=== PATIENT | male | born 1955 | race Caucasian/White ===

== ENCOUNTER 2019-06-23 05:53 | Emergency (ER) | payer OTHER ==
[2019-06-23 06:16] VITALS: BMI 26.6
[2019-06-23 07:00] LABS: HEMATOCRIT 37.5 % (35.4-49); HEMOGLOBIN 13.2 GM/dL (11.7-16.9); MCHC 35.2 g/dl (32.0-35.9); MEAN PLT VOLUME 8.9 fl (7.5-11.1); PLATELET COUNT 267 K/MM3 (134-434); RBC 4.12 M/mm3 (4.00-5.60); RDW 13.6 % (11.9-15.9); WHITE BLOOD COUNT 9.1 K/mm3 (4.0-10.0)
[2019-06-23 07:34] LABS: ALBUMIN 3.5 g/dl (3.4-5.0); ALK PHOS 59 U/L (45-117); ANION GAP 5 MMOL/L (8-16); BILIRUBIN,TOTAL 0.3 mg/dL (0.2-1); BLOOD UREA NITROGEN 23.2 mg/dL (7-18); CHLORIDE 109 mmol/L (98-107); CO2 28 mmol/L (21-32); CREATININE 1.3 mg/dL (0.55-1.3); GLUCOSE,RANDOM 108 mg/dL (74-106); POTASSIUM 4.5 mmol/L (3.5-5.1); SGOT/AST 15 U/L (15-37); SGPT/ALT 22 U/L (13-61); SODIUM 142 mmol/L (136-145); TOT PROT 6.4 g/dl (6.4-8.2)
[2019-06-23] MEDS ORDERED: MECLIZINE HCL 25 MG TABLET (FP) PO ONE (08:10)
[2019-06-23] MEDS ORDERED: SODIUM CHLORIDE 1,000 ML IV STA (08:10)
[2019-06-23] MEDS ORDERED: MECLIZINE HCL 12.5 MG TABLET ONE (08:20)
--- NOTE | 2019-06-23 09:17 | PDOC ---
Documentation entered by Meg Hylton SCRIBE, acting as scribe for Jm Garcias MD. Jm Garcias MD: This documentation has been prepared by the Warner segura Sammi, SCRIBE, under my direction and personally reviewed by me in its entirety. I confirm that the documentation accurately reflects all work, treatment, procedures, and medical decision making performed by me. History of Present Illness - General Chief Complaint: Lightheaded Stated Complaint: DIZZINESS Time Seen by Provider: 06/23/19 07:51 - History of Present Illness Initial Comments: 06/23/19 08:22 The patient is a 64 year old male, with PMH of chronic sinusitis, lumbar herniated discs, HTN, who presents for evaluation of sudden onset of dizziness, specifically when looking to the left, with associated trouble focusing, nausea , and weird feeling in his face. Denies chest pain and shortness of breath. Denies fever, chills, vomiting, diarrhea and constipation. Denies dysuria, frequency, urgency and hematuria. PCP: Vandana Jade Past History - Past Medical History Allergies/Adverse Reactions: Allergies Allergy/AdvReac Type Severity Reaction Status Date / Time No Known Allergies Allergy Verified 06/23/19 06:11 Home Medications: Ambulatory Orders Atorvastatin Ca [Lipitor] 40 mg PO HS 06/23/19 Telmisartan 80 mg PO DAILY 06/23/19 COPD: Yes HTN: Yes Hypercholesterolemia: Yes - Psycho Social/Smoking Cessation Hx Smoking History: Never smoked Have you smoked in the past 12 months: No Information on smoking cessation initiated: No Hx Alcohol Use: No Drug/Substance Use Hx: No Review of Systems - Review of Systems Comments:: 06/23/19 08:23 CONSTITUTIONAL: No fever, no chills, no fatigue EYES: No visual changes ENT: No ear pain, no sore throat CARDIOVASCULAR: No chest pain, no palpitations RESPIRATORY: No cough, no SOB GI: +nausea. No abdominal pain, no vomiting, no constipation, no diarrhea GENITOURINARY: No dysuria, no frequency, no hematuria MUSKULOSKELETAL: No backpain, no joint pain, no myalgias SKIN: No rash NEURO: +dizziness. No headache. *Physical Exam - Vital Signs Last Vital Signs Temp Pulse Resp BP Pulse Ox 97.6 F 64 20 149/89 97 06/23/19 06:12 06/23/19 06:12 06/23/19 06:12 06/23/19 06:12 06/23/19 06:12 - Physical Exam 06/23/19 08:22 CONSTITUTIONAL: Well-appearing; well-nourished; in no apparent distress HEAD: Normocephalic; atraumatic EYES: +Bilateral end point nystagmus, PERRL; ENMT: External appears normal; normal oropharynx NECK: Supple; non-tender; no cervical lymphadenopathy CARD: Normal S1, S2; no murmurs, rubs, or gallops RESP: Normal chest excursion with respiration; breath sounds clear and equal bilaterally; no wheezes, rhonchi, or rales ABD: Soft, non-distended; non-tender; no palpable organomegaly, no palpable hernias EXT: Normal ROM in all four extremities; non-tender to palpation; distal pulses intact SKIN: Warm, dry, no rash NEURO: Normal speech, cranial nerves II-XII intact, negative pronator drift, 5/ 5 motor x4, normal sensation to light touch in all 4 extremities, normal cerebellar exam (ftn; rapid alt movts; htsh; no dysmetria), normal reflexes and tone; ED Treatment Course - LABORATORY CBC & Chemistry Diagram: 06/23/19 06:30 06/23/19 06:30 - ADDITIONAL ORDERS Additional order review: Laboratory Results 06/23/19 06:30 Sodium 142 Potassium 4.5 Chloride 109 H Carbon Dioxide 28 Anion Gap 5 L BUN 23.2 H Creatinine 1.3 Est GFR (CKD-EPI)AfAm 66.36 Est GFR (CKD-EPI)NonAf 57.26 Random Glucose 108 H Calcium 9.0 Total Bilirubin 0.3 AST 15 ALT 22 Alkaline Phosphatase 59 Creatine Kinase 110 Troponin I < 0.02 Total Protein 6.4 Albumin 3.5 06/23/19 06:30 RBC 4.12 MCV 91.0 MCHC 35.2 RDW 13.6 MPV 8.9 - Medications Given in the ED: ED Medications Discontinued Medications Generic Name Dose Route Start Last Admin Trade Name Freq PRN Reason Stop Dose Admin Sodium Chloride 1,000 mls @ 1,000 mls/hr 06/23/19 08:10 06/23/19 08:26 Normal Saline - IV 06/23/19 09:09 1,000 mls/hr ASDIR STA Administration Meclizine HCl 25 mg 06/23/19 08:10 06/23/19 08:26 Antivert - PO 06/23/19 08:11 25 mg ONCE ONE Administration Medical Decision Making - Medical Decision Making 06/23/19 09:16 Patient is a 64-year-old male with history of hypertension, chronic sinusitis presents with signs and symptoms of acute benign positional vertigo. I do not suspect central posterior fossa insufficiency. Will administer fluids and meclizine. Will obtain CT of head to rule out intracerebral hemorrhage. Likely discharge. 06/23/19 10:54 Patient reassessed. Patient is resting comfortably. Repeat neurological evaluation reveals no focal deficits. Patient is able to ambulate without difficulty. His gait is stable without evidence of ataxia. Posterior circulation insufficiency is highly unlikely at this time.Will discharge with meclizine with outpatient follow-up. Discharge - Discharge Information Problems reviewed: Yes Clinical Impression/Diagnosis: Vertigo Condition: Stable Disposition: HOME - Follow up/Referral Referrals: Davidson Jade MD [Primary Care Provider] - - Patient Discharge Instructions Patient Printed Discharge Instructions: DI for Vertigo - Post Discharge Activity
[2019-06-23 11:08] VITALS: BP 138/63; PULSE 68; TEMP 98.6
--- NOTE | 2019-06-23 14:53 | EKG ---
Test Reason : Blood Pressure : / mmHG Vent. Rate : 063 BPM Atrial Rate : 063 BPM P-R Int : 180 ms QRS Dur : 080 ms QT Int : 418 ms P-R-T Axes : 049 050 044 degrees QTc Int : 427 ms NORMAL SINUS RHYTHM NORMAL ECG NO PREVIOUS ECGS AVAILABLE Confirmed by SHAHZAD WAGONER MD ([id number]) on 06/23/2019 2:53:36 PM Referred By: Confirmed By:SHAHZAD WAGONER MD
== END 2019-06-23 11:02 | disposition home or self-care (01) ==
LOC: JER 05:53
PROC: 3E0337Z Introduction of Electrolytic and Water Balance Substance into Peripheral Vein, Percutaneous Approach (ICD-10-PCS; principal; 2019-06-23)
DX: R42 Dizziness and giddiness (principal); I10 Essential (primary) hypertension; J32.8 Other chronic sinusitis
CPT/HCPCS: 36415; 70450-TC; 71045-TC-FY; 80053; 82550; 84484; 85027; 93005; 93010; 96360; 99284-25; J7030

== ENCOUNTER 2019-07-27 09:03 | Inpatient (IN) | payer OTHER ==
--- NOTE | 2019-07-27 09:09 | PDOC ---
*Physical Exam - Vital Signs Last Vital Signs Temp Pulse Resp BP Pulse Ox 98 F 76 19 166/66 96 07/27/19 09:05 07/27/19 09:05 07/27/19 09:05 07/27/19 09:05 07/27/19 09:05 <Anabela Luna - Last Filed: 07/27/19 13:06> - Vital Signs Last Vital Signs Temp Pulse Resp BP Pulse Ox 98.0 F 72 16 136/82 98 07/27/19 12:52 07/27/19 12:52 07/27/19 12:52 07/27/19 12:52 07/27/19 12:52 <Layla Claudio - Last Filed: 07/27/19 16:12> Heart Score/ECG Review - ECG Impressions Comment:: 07/27/19 11:22 HR 67, no MADHU/STD/TWI, normal intervals, no deviations <Anabela Luna - Last Filed: 07/27/19 13:06> ED Treatment Course - LABORATORY CBC & Chemistry Diagram: 07/27/19 10:18 07/27/19 10:18 <Anabela Luna - Last Filed: 07/27/19 13:06> - LABORATORY CBC & Chemistry Diagram: 07/27/19 10:18 07/27/19 10:18 - RADIOLOGY Radiology Studies Ordered: Category Date Time Status CHEST X-RAY PORTABLE* [RAD] Stat Radiology 07/27/19 10:17 Completed - Medications Given in the ED: ED Medications Discontinued Medications Generic Name Dose Route Start Last Admin Trade Name Freq PRN Reason Stop Dose Admin Sodium Chloride 1,000 ml 07/27/19 10:52 07/27/19 11:13 Normal Saline - IV 07/27/19 10:53 1,000 ml ONCE ONE Administration <Layla Claudio - Last Filed: 07/27/19 16:12> Medical Decision Making - Medical Decision Making 07/27/19 09:08 Patient seen as pre-attending with Dr. Trent (PGY-1) and Dr. Claudio (Attending) 64 y/o male with a PMHx of HTN, chronic sinusitis, vertigo, lumbar herniated discs here with persistent tinnitus, a sense of lightheadedness, shock like pains in the back of his head when he sleep and floating like sensation. Symptoms are constant and worse at night. Notes he was evaluated for vertigo at which time he was given Meclizine. Followed up ENT with R sided high frequency hearing loss. Evaluated by PMD who stated he had inner ear disease. VS unremarkable PE significant for B/L horizontal nystagmus. As per EMR, patient evaluated in our ED 06/2019 for vertigo, head CT negative for ischemia including posterior fossa insufficiency. Will evaluate patient for r/o ACS, electrolyte derangement, dehydration, low clinical suspicion for CVA given recent negative Head CT; patient requires MRI for complete evaluation of symptoms. 07/27/19 11:23 Labs unremarkable EKG non-ischemic Will page hospitalist for admission. <Anabela Luna - Last Filed: 07/27/19 13:06> Discharge - Discharge Information Problems reviewed: Yes <Anabela Luna - Last Filed: 07/27/19 13:06> - Discharge Information Problems reviewed: Yes - Admission Yes <Layla Claudio - Last Filed: 07/27/19 16:12> - Discharge Information Clinical Impression/Diagnosis: Lightheaded Tinnitus Qualifiers: Laterality: bilateral Qualified Code(s): H93.13 - Tinnitus, bilateral Condition: Stable
--- NOTE | 2019-07-27 09:50 | PDOC ---
History of Present Illness - General History Source: Patient Exam Limitations: No Limitations - History of Present Illness Initial Comments: 07/27/19 09:49 Emil Lima is a 64M with PMH chronic sinusitis, lumbar herniated discs, HTN, HLD, presenting with dizziness. Patient evaluated last month in ED for room-spinning dizziness, given meclizine and IVF and CT head obtained which had no concerning findings, discharged home on meclizine. Since then, has had improvement in room-spinning dizziness but is still complaining of a distinctly different lightheadedness, described as if he is floating. Also having difficulty with watching TV with new vision blurriness, tinnitus and sensitivity to loud noises, and a pulsating sensation in his temples. Denies nausea, vomiting, fever, chills. Denies weakness, numbness, tingling. Able to ambulate without issues. Has seen ENT a few weeks ago, audiogram shows mild high frequency hearing loss, Kahlil maneuvers performed without significant improvement, ENT discharged home. No history of cardiac disease, CVA, OK, AFIB. Daily medications include statin and ARB for HTN. NDKA. Denies alcohol/tobacco/drug use. <Steffen Trent - Last Filed: 07/27/19 12:29> <Layla Claudio - Last Filed: 07/29/19 16:18> - General Chief Complaint: Lightheaded Stated Complaint: VERTIGO Time Seen by Provider: 07/27/19 09:46 NIH Stroke Scale - Initial Evaluation Level of consciousness: Alert Ask patient the month and their age: Answers both correctly Ask patient to open & close eyes; make fist and let go: Obeys both correctly Best gaze (horizontal eye movement): Normal Visual field testing: No visual field loss Facial paresis (Show teeth/raise eyebrows/close eyes tight): Minor paralysis ( flattened nasolabial fold, asymmetry on smiling) Motor Function: Left Arm: Normal Motor Function: Right Arm: Normal (extends arm 90 (or 45) degrees for 10 seconds without drift Motor Function: Left Leg: Normal (extends leg 30 degrees for 5 seconds without drift) Motor Function: Right Leg: Normal (extends leg 30 degrees for 5 seconds without drift) Limb Ataxia: No ataxia Sensory(Use pinprick test arms,legs,trunk,face/side to side): Normal Best language (Describe picture, name items, read sentences): No Aphasia Dysarthria (read several words): Normal articulation Extinction and Inattention: No abnormality - Total Score NIH Stroke Scale Score: 1 <PamelaSteffen sloan - Last Filed: 07/27/19 12:29> Past History - Past Medical History COPD: Yes HTN: Yes Hypercholesterolemia: Yes - Psycho Social/Smoking Cessation Hx Smoking History: Never smoked Have you smoked in the past 12 months: No Hx Alcohol Use: No Drug/Substance Use Hx: No <Steffen Trent - Last Filed: 07/27/19 12:29> <Layla Claudio - Last Filed: 07/29/19 16:18> - Past Medical History Allergies/Adverse Reactions: Allergies Allergy/AdvReac Type Severity Reaction Status Date / Time No Known Allergies Allergy Verified 07/27/19 09:07 Home Medications: Ambulatory Orders Atorvastatin Ca [Lipitor] 40 mg PO HS 06/23/19 Aspirin [ASA -] 81 mg PO DAILY #30 tab.chew 07/28/19 Telmisartan 80 mg PO DAILY 07/28/19 Review of Systems - Review of Systems Able to Perform ROS?: Yes Constitutional: No: Chills, Fever, Weakness HEENTM: Yes: Blurred Vision, Recent change in vision, Tinnitus. No: Hearing Loss, Throat Pain Respiratory: No: Cough, Shortness of Breath, Wheezing Cardiac (ROS): Yes: Lightheadedness. No: Chest Pain, Edema, Irregular Heart Rate, Palpitations, Syncope, Chest Tightness ABD/GI: No: Abdominal Distended, Constipated, Diarrhea, Nausea, Poor Appetite, Poor Fluid Intake, Vomiting : No: Symptoms Reported Musculoskeletal: Yes: Back Pain, Neck Pain. No: Muscle Weakness Integumentary: No: Symptoms Reported Neurological: Yes: Dizziness. No: Headache, Numbness, Paresthesia, Seizure, Tingling, Unsteady Gait, Ataxia Endocrine: No: Symptoms Reported Hematologic/Lymphatic: No: Symptoms Reported All Other Systems: Reviewed and Negative <PamelaThad sloanur - Last Filed: 07/27/19 12:29> *Physical Exam - Vital Signs Last Vital Signs Temp Pulse Resp BP Pulse Ox 98 F 76 19 166/66 96 07/27/19 09:05 07/27/19 09:05 07/27/19 09:05 07/27/19 09:05 07/27/19 09:05 - Physical Exam General Appearance: Yes: Nourished, Appropriately Dressed. No: Apparent Distress HEENT: positive: EOMI (horizontal bidirectional nystagmus), LAUREN, Normal Voice, TMs Normal, Pharynx Normal, Hearing Grossly Normal. negative: Symmetrical ( flattening of R nasolabial fold), Scleral Icterus (R), Scleral Icterus (L), Muffled/Hoarse voice, Pharyngeal Erythema, Tonsillar Exudate, Tonsillar Erythema Neck: positive: Trachea midline, Normal Thyroid, Supple. negative: Tender, Rigid, Lymphadenopathy (R), Lymphadenopathy (L), Tender lateral, Tender midline Respiratory/Chest: positive: Lungs Clear, Normal Breath Sounds. negative: Chest Tender, Respiratory Distress, Accessory Muscle Use, Crackles, Rales, Rhonchi Cardiovascular: positive: Regular Rhythm, Regular Rate. negative: Murmur Gastrointestinal/Abdominal: positive: Normal Bowel Sounds, Flat, Soft. negative : Tender, Pulsatile Mass, Guarding, Rebound Musculoskeletal: positive: Normal Inspection. negative: CVA Tenderness Extremity: positive: Normal Capillary Refill, Normal Inspection, Normal Range of Motion, Pelvis Stable. negative: Tender, Pedal Edema, Swelling Integumentary: positive: Normal Color, Dry, Warm Neurologic: positive: Fully Oriented, Alert, Normal Mood/Affect, Normal Response , Motor Strength 5/5, Facial Droop, Finger to Nose (normal), Other (Gait normal. HiNTS: no saccades, nystagmus present, no skew). negative: client partner II-XII NML intact (R-sided facial droop), Numbness, Sensory Deficit <Steffen Trent - Last Filed: 07/27/19 12:29> - Vital Signs Last Vital Signs Temp Pulse Resp BP Pulse Ox 98.2 F 73 16 121/63 96 07/28/19 13:54 07/28/19 13:54 07/28/19 13:54 07/28/19 13:54 07/28/19 09:00 <Layla Claudio - Last Filed: 07/29/19 16:18> ED Treatment Course - LABORATORY CBC & Chemistry Diagram: 07/27/19 10:18 07/27/19 10:18 <Steffen Trent - Last Filed: 07/27/19 12:29> - LABORATORY CBC & Chemistry Diagram: 07/28/19 05:35 07/28/19 05:35 - RADIOLOGY Radiology Studies Ordered: Category Date Time Status CHEST X-RAY PORTABLE* [RAD] Stat Radiology 07/27/19 10:17 Completed - Medications Given in the ED: ED Medications Discontinued Medications Generic Name Dose Route Start Last Admin Trade Name Freq PRN Reason Stop Dose Admin Aspirin 81 mg 07/28/19 14:00 07/28/19 14:20 Asa - PO 81 mg DAILY THELMA Administration Atorvastatin Calcium 40 mg 07/27/19 22:00 07/27/19 22:18 Lipitor - PO 40 mg HS THELMA Administration Enoxaparin Sodium 40 mg 07/28/19 10:00 07/28/19 09:12 Lovenox - SQ 40 mg DAILY THELMA Administration Sodium Chloride 1,000 ml 07/27/19 10:52 07/27/19 11:13 Normal Saline - IV 07/27/19 10:53 1,000 ml ONCE ONE Administration Valsartan 320 mg 07/28/19 11:00 07/28/19 12:04 Diovan - PO 320 mg DAILY THELMA Administration <Layla Claudio - Last Filed: 07/29/19 16:18> Medical Decision Making - Medical Decision Making 07/27/19 11:06 Patient presents with lightheadedness, tinnitus, and nystagmus that is worse from his prior ED visit last month for vertigo. On exam has bidirectional nystagmus and mild R-sided facial droop, patient unaware how long this was for as he did not notice, last known normal unknown, family unaware either, well out of range of tPA. No other acute deficits, no Code Hutton indicated at this time. Presentation immediately concerning for posterior CVA. Given tinnitus and lightheadedness may be concerning for Meniere's or labyrinthitis. Evaluating via: - CBC for eval infection - CMP for eval lytes - CP for eval cardiac cause of dizziness - CT head for facial droop and worsening dizziness Giving 1L NS for dizziness. Patient will need admission for further MRI and neurology evaluation. 07/27/19 12:[address] Mcgrath with admitting team, fabio for tele admit under Dr. Gómez for eval CVA. 07/27/19 12:28 ECG shows NSR with HR 67, QRS 80, QTc 431, no ischemic changes or TWI. CXR unremarkable. CT no evidence of infarct or ICH. <Steffen Trent - Last Filed: 07/27/19 12:29> Discharge - Discharge Information Problems reviewed: Yes - Admission Yes <Steffen Trent - Last Filed: 07/27/19 12:29> - Discharge Information Problems reviewed: Yes <Layla Claudio - Last Filed: 07/29/19 16:18> - Discharge Information Clinical Impression/Diagnosis: Lightheaded Tinnitus Qualifiers: Laterality: bilateral Qualified Code(s): H93.13 - Tinnitus, bilateral Condition: Stable
--- NOTE | 2019-07-27 10:06 | PDOC ---
Attending Attestation - Resident Resident Name: Anabela Luna - ED Attending Attestation I have performed the following: I have examined & evaluated the patient, The case was reviewed & discussed with the resident, I agree w/resident's findings & plan - HPI HPI: 07/27/19 09:51 Emil Lima is a 64M with PMH chronic sinusitis, lumbar herniated discs, HTN, presenting with constant dizziness/lightheadedness, which is worse at nighttime and at rest, a/w vibratory sensations in his temples.. sx are not improving. ringing in b/l ears, difficulty focusing and visual disturbance on right with watching tv last night. he admits to feeling vibrations along his temples bilaterally, migratory. occasionally gets generalized headaches which he has difficulty describing.. Patient evaluated last month in ED on 06/23/19 for dizziness/vertigo, given meclizine and IVF and CT head obtained which had no concerning findings, chronic sinusitis noted, discharged home on meclizine which helped the vertigo, which has since resolved.. has seen ENT x 2 in the past 1 month, where audiogram with right sided high freq hearing loss. no headache, fever no trauma. no focal paresthesia or weakness. no gait instability no difficulty with speech. PCP: Vandana Jade 07/27/19 10:13 07/27/19 10:55 - Physicial Exam PE: 07/27/19 09:51 Agree with the resident's HPI and PE as documented in the electronic medical record. NAD, well appearing, Alert, oriented to person time and place. NCAT, EOMI, PERRL , nl conjunctiva, anicteric, b/l fatiguable nystagmus; Airway patent, normal phonation. Uvula midline. no tonsillar hypertrophy. No sinus tenderness, TM clear. neck supple. No carotid bruit, lungs clear, RRR, abdomen soft nontender. no rebound, guarding. Back nontender. ALICIA x4. No peripheral edema. normal color for ethnicity, WWP. +minor right lower facial droop, minor decrease in nasolabial folds; able to raise bilateral eyebrows and normal furrowing b/l. 5/5 masseter muscle strength , V1-3 grossly intact to touch. tongue midline. hearing intact b/l. 5/5 shoulder shrug. Strength prox and distally 5/5 throughout. Sensation grossly intact to light touch. ALICIA x4. No cerebellar signs, no dysmetria, bilateral finger to nose and heel to sims equal and symmetric. Speech clear. no pronator drift. 07/27/19 10:53 07/27/19 10:59 - Medical Decision Making 07/27/19 09:52 Vital Signs Temp Pulse Resp BP Pulse Ox 98 F 76 19 166/66 96 07/27/19 09:05 07/27/19 09:05 07/27/19 09:05 07/27/19 09:05 07/27/19 09:05 ddx. vertigo/dizziness: peripheral vertigo, BPPV, labrynthitis, central vertigo/ stroke, posterior circ stroke, trauma, infection, cerumen impaction, ACS, arrhythmia VS reviewed, mildly hypertensive, afebrile, no tachy. orthostats unremarkable with positional changes. no trauma no s/s infection. no meningeal signs no focal neuro deficits, speech clear no suggestion of central etiology. has seen ENT x 2 in the past 1 month, where audiogram with right sided high freq hearing loss. no headache, fever no trauma. no focal paresthesias no gait instability no difficulty with speech. noted to have right sided lower facial droop, which pt nor family has noted. unclear last normal for patient, as symptoms have been present x at least 1 month. not tpa candidate, nor code contreras, as there is not clear last normal and patient has not noticed his very mild right lower facial drop CT head repeat, unremarkable warrants MRI for insidious process. admit to hospitalist service, medical management, tele and MRI/echo 07/27/19 10:14 Heart Score/ECG Review #1 ECG reviewed & interpreted by me at: 10:35 General ECG Interpretation: Sinus Rhythm, Normal Rate, Normal Intervals 07/27/19 10:59 EKG normal sinus rhythm 67 bpm, no interval abnormalities, narrow QRS, ST and T wave segments and morphology normal.
[2019-07-27 10:41] LABS: BASO % 0.7 % (0-2.0); EOS % 0.9 % (0-4.5); HEMATOCRIT 40.9 % (35.4-49); HEMOGLOBIN 13.9 GM/dL (11.7-16.9); MCH 31.7 pg (25.7-33.7); MEAN CELL VOLUME 93.2 fl (80-96); MEAN PLT VOLUME 8.9 fl (7.5-11.1); NEUT % 72.4 % (42.8-82.8); PLATELET COUNT 278 K/MM3 (134-434); RBC 4.39 M/mm3 (4.00-5.60); RDW 13.6 % (11.9-15.9); WHITE BLOOD COUNT 8.7 K/mm3 (4.0-10.0)
[2019-07-27] MEDS ORDERED: SODIUM CHLORIDE 0.9% 500 ML INFUS.BAG IV ONE (10:52)
[2019-07-27 11:09] LABS: ALBUMIN 4.2 g/dl (3.4-5.0); ALK PHOS 61 U/L (45-117); ANION GAP 6 MMOL/L (8-16); BILIRUBIN,TOTAL 0.5 mg/dL (0.2-1); CALCIUM 9.3 mg/dL (8.5-10.1); CHLORIDE 107 mmol/L (98-107); CO2 27 mmol/L (21-32); CREATININE 1.3 mg/dL (0.55-1.3); GLUCOSE,RANDOM 117 mg/dL (74-106); POTASSIUM 4.4 mmol/L (3.5-5.1); SGOT/AST 20 U/L (15-37); SGPT/ALT 28 U/L (13-61); SODIUM 140 mmol/L (136-145); TOT PROT 7.1 g/dl (6.4-8.2)
--- NOTE | 2019-07-27 16:17 | PN ---
Teaching Attending Note Name of Resident: Jana Villegas ATTENDING PHYSICIAN STATEMENT I saw and evaluated the patient. I reviewed the resident's note and discussed the case with the resident. I agree with the resident's findings and plan as documented. SUBJECTIVE: Patient interviewed and examined at bedside, endorses acute on chronic dizziness and "floating-like sensation" for the past few days, see's ENT outpatient whom has given him abx/steroids in the past for similar presentation which helped, now feels slightly worse symptoms than prior. VS otherwise stable, awaiting MRI. OBJECTIVE: GA comfortable, AAox3, speaking in full sentences, NAD HEENT NC/AT, neck supple, faint R nasolabial fold asymmetry compared to L, no dysarthria, EOMI, LAUREN, no nystagmus Chest CTAB, no crackles or wheezing CVS s1, S2+, RRR, no m/r/g, no audible carotid bruits Abd Soft, NT, ND, BS+ Ext No LE edema, 5/5 strength UE and LE Neuro Scott hallpike negative, CN 2-12 grossly intact, finger to nose intact, good sensation and equal in face UE and LE b/l. Vital Signs - 24 hr 07/27/19 07/27/19 07/27/19 09:05 10:44 12:52 Temperature 98 F 98.0 F Pulse Rate 76 Pulse Rate [ 72 Left Apical] Pulse Rate [ 80 Right side Sitting] Pulse Rate [ 84 Right side Standing] Pulse Rate [ 68 Right side Supine] Respiratory 19 16 Rate Blood Pressure 166/66 Blood Pressure 136/82 [Left Arm] Blood Pressure 136/95 [Right side Sitting] Blood Pressure 141/102 H [Right side Standing] Blood Pressure 156/90 [Right side Supine] O2 Sat by Pulse 96 98 Oximetry (%) Laboratory Results - last 24 hr 07/27/19 07/27/19 10:18 10:18 WBC 8.7 RBC 4.39 Hgb 13.9 Hct 40.9 MCV 93.2 MCH 31.7 MCHC 34.0 RDW 13.6 Plt Count 278 MPV 8.9 Absolute Neuts (auto) 6.3 Neutrophils % 72.4 Lymphocytes % 20.0 Monocytes % 6.0 Eosinophils % 0.9 Basophils % 0.7 Nucleated RBC % 0 Sodium 140 Potassium 4.4 Chloride 107 Carbon Dioxide 27 Anion Gap 6 L BUN 19.0 H Creatinine 1.3 Est GFR (CKD-EPI)AfAm 66.36 Est GFR (CKD-EPI)NonAf 57.26 Random Glucose 117 H Calcium 9.3 Total Bilirubin 0.5 AST 20 ALT 28 Alkaline Phosphatase 61 Creatine Kinase 206 Creatine Kinase Index 0.9 CK-MB (CK-2) 2.0 Troponin I < 0.02 Total Protein 7.1 Albumin 4.2 Home Medications Medication Instructions Recorded Atorvastatin Ca [Lipitor] 40 mg PO HS 06/23/19 Meclizine HCl [Antivert -] 25 mg PO TID #21 tablet 06/23/19 Telmisartan 80 mg PO DAILY 06/23/19 Current Medications Generic Name Dose Route Start Last Admin Trade Name Freq PRN Reason Stop Dose Admin Enoxaparin Sodium 40 mg 07/28/19 10:00 Lovenox - SQ DAILY THELMA ASSESSMENT AND PLAN: 64 M h/o HTN, chronic vertigo, HLD presents with acute on chronic dizziness and feeling of lightheadedness. Patient admitted to r/o posterior circulation CVA v.s. Meniere's/labyrinthitis exacerbation. Dizziness and lightheadedness doubt CVA, no focal neuro deficits, endorses dizziness/lightheadedness is chronic (for years) but recently worsened 2/2 ?URI Obtain MRI to r/o CVA, neurochecks, statin, permissive HTN pending imaging ENT consult Neuro consult HTN hold BP meds for now HLD resume statin DVT ppx: Lovenox SC Tele monitoring
--- NOTE | 2019-07-27 17:50 | HP ---
CHIEF COMPLAINT: dizziness PCP:Dr. Jade HISTORY OF PRESENT ILLNESS: PAtient is a 64 year old male with past medical history of chronic sinusitis, lumbar herniated discs, HTN and HLD, presented to the ED due to persistent dizziness/lightheadedness. Patient was seen a month ago at the ED where Head CT was negative of any acute pathology and patient was sent home on Meclizine for vertigo. Since then, patient continued to have symptoms of lightheadedness, accompanied by tinnitus, of which he has seen ENT in the past of which he was told it was normal, and had an audiometry done recently and he was diagnosed with decreased left hearing. In the last few days, patient noted some blurry vision, especially when watching TV, and feels "some electricity in my head". He denies any recent illness. Denies fever, chills, headache, nausea, vomiting, chest pain, SOB, abdominal pain, diarrhea, urinary symptoms. Denies weakness, numbness, or tingling. At the ED, patient was noted to have left sided facial droop, of which patient reported "has always been like that." ER course was notable for: (1)Head CT - no acute intracranial pathology (2) (3) Recent Travel:denies PAST MEDICAL HISTORY: lumbar herniated discs HTN HLD PAST SURGICAL HISTORY: none Social History: Smoking:denies Alcohol:denies Drugs: denies Allergies No Known Allergies Allergy (Verified 07/27/19 09:07) HOME MEDICATIONS: Home Medications Medication Instructions Recorded Atorvastatin Ca [Lipitor] 40 mg PO HS 06/23/19 Meclizine HCl [Antivert -] 25 mg PO TID #21 tablet 06/23/19 Telmisartan 80 mg PO DAILY 06/23/19 REVIEW OF SYSTEMS CONSTITUTIONAL: Absent: fever, chills, diaphoresis, generalized weakness, malaise, loss of appetite, weight change HEENT: Absent: rhinorrhea, nasal congestion, throat pain, throat swelling, difficulty swallowing, mouth swelling, ear pain, eye pain, visual changes CARDIOVASCULAR: Absent: chest pain, syncope, palpitations, irregular heart rate, lightheadedness , peripheral edema RESPIRATORY: Absent: cough, shortness of breath, dyspnea with exertion, orthopnea, wheezing, stridor, hemoptysis GASTROINTESTINAL: Absent: abdominal pain, abdominal distension, nausea, vomiting, diarrhea, constipation, melena, hematochezia GENITOURINARY: Absent: dysuria, frequency, urgency, hesitancy, hematuria, flank pain, genital pain MUSCULOSKELETAL: Absent: myalgia, arthralgia, joint swelling, back pain, neck pain SKIN: Absent: rash, itching, pallor HEMATOLOGIC/IMMUNOLOGIC: Absent: easy bleeding, easy bruising, lymphadenopathy, frequent infections ENDOCRINE: Absent: unexplained weight gain, unexplained weight loss, heat intolerance, cold intolerance NEUROLOGIC: dizziness Absent: headache, focal weakness or paresthesias, unsteady gait, seizure, mental status changes, bladder or bowel incontinence PSYCHIATRIC: Absent: anxiety, depression, suicidal or homicidal ideation, hallucinations. PHYSICAL EXAMINATION Vital Signs - 24 hr 07/27/19 07/27/19 07/27/19 09:05 10:44 12:52 Temperature 98 F 98.0 F Pulse Rate 76 Pulse Rate [ 72 Left Apical] Pulse Rate [ 80 Right side Sitting] Pulse Rate [ 84 Right side Standing] Pulse Rate [ 68 Right side Supine] Respiratory 19 16 Rate Blood Pressure 166/66 Blood Pressure 136/82 [Left Arm] Blood Pressure 136/95 [Right side Sitting] Blood Pressure 141/102 H [Right side Standing] Blood Pressure 156/90 [Right side Supine] O2 Sat by Pulse 96 98 Oximetry (%) GENERAL: Awake, alert, and fully oriented, in no acute distress. HEAD: Normal with no signs of trauma. EYES: PERRLA, EOMI, sclera anicteric, conjunctiva clear. EARS, NOSE, THROAT: Moist mucous membranes. NECK: Normal range of motion, supple LUNGS: Breath sounds equal, clear to auscultation bilaterally. HEART: Regular rate and rhythm, normal S1 and S2 without murmur, rub or gallop. ABDOMEN: Soft, nontender, not distended, normoactive bowel sounds LOWER EXTREMITIES: 2+ pulses, warm, well-perfused. No peripheral edema. NEUROLOGICAL: Cranial nerves II-XII intact. Normal speech. Normal gait. Motor strength 5/5, sensation intact on all extremities. PSYCHIATRIC: Cooperative. Good eye contact. Appropriate mood and affect. SKIN: Warm, dry, normal turgor. Laboratory Results - last 24 hr 07/27/19 07/27/19 10:18 10:18 WBC 8.7 RBC 4.39 Hgb 13.9 Hct 40.9 MCV 93.2 MCH 31.7 MCHC 34.0 RDW 13.6 Plt Count 278 MPV 8.9 Absolute Neuts (auto) 6.3 Neutrophils % 72.4 Lymphocytes % 20.0 Monocytes % 6.0 Eosinophils % 0.9 Basophils % 0.7 Nucleated RBC % 0 Sodium 140 Potassium 4.4 Chloride 107 Carbon Dioxide 27 Anion Gap 6 L BUN 19.0 H Creatinine 1.3 Est GFR (CKD-EPI)AfAm 66.36 Est GFR (CKD-EPI)NonAf 57.26 Random Glucose 117 H Calcium 9.3 Total Bilirubin 0.5 AST 20 ALT 28 Alkaline Phosphatase 61 Creatine Kinase 206 Creatine Kinase Index 0.9 CK-MB (CK-2) 2.0 Troponin I < 0.02 Total Protein 7.1 Albumin 4.2 ASSESSMENT/PLAN: PAtient is a 64 year old male with past medical history of chronic sinusitis, lumbar herniated discs, HTN and HLD, presented to the ED due to persistent dizziness/lightheadedness. #Dizziness -unclear etiology at this time, may be 2/2 labyrinthitis, Meniere's disease , will r/o CVA -will order brain MRI to r/o CVA -continue statin, hold telmisartan for permissive HTN pending MRI -neurochecks -HOB elevated -Neurology (dr. Dunbar) consulted. -would likely need ENT consult on discharge #HTN -Hold Telmisartan 80mg daily to allow permissive htn #HLD -Continue Lipitor 40mg PO HS #FEN -Not on any standing fluids -Electrolytes wnl, routine bmp monitoring -Sodium restricted/low fat diet #Prophylaxis -Lovenox 40mg sq daily #Disposition -full code -admit to tele Visit type - Emergency Visit Emergency Visit: Yes ED Registration Date: 07/27/19 Care time: The patient presented to the Emergency Department on the above date and was hospitalized for further evaluation of their emergent condition. - New Patient This patient is new to me today: Yes Date on this admission: 07/27/19 - Critical Care Critical Care patient: No ATTENDING PHYSICIAN STATEMENT I saw and evaluated the patient. I reviewed the resident's note and discussed the case with the resident. I agree with the resident's findings and plan as documented. SUBJECTIVE: OBJECTIVE: ASSESSMENT AND PLAN:
[2019-07-27] MEDS ORDERED: ATORVASTATIN CA 40 MG TABLET (FP) PO SCH (22:00)
[2019-07-27 22:27] VITALS: BMI 27.0
[2019-07-28 06:48] LABS: BASO % 0.9 % (0-2.0); EOS % 3.4 % (0-4.5); HEMATOCRIT 38.8 % (35.4-49); HEMOGLOBIN 13.7 GM/dL (11.7-16.9); LYMPH % 32.5 % (8-40); MCH 32.4 pg (25.7-33.7); MCHC 35.2 g/dl (32.0-35.9); MEAN CELL VOLUME 92.2 fl (80-96); MEAN PLT VOLUME 9.2 fl (7.5-11.1); MONO % 7.4 % (3.8-10.2); NEUT % 55.8 % (42.8-82.8); PLATELET COUNT 271 K/MM3 (134-434); RBC 4.21 M/mm3 (4.00-5.60); RDW 13.9 % (11.9-15.9); WHITE BLOOD COUNT 7.7 K/mm3 (4.0-10.0)
[2019-07-28 07:22] LABS: ALBUMIN 3.6 g/dl (3.4-5.0); BILIRUBIN,TOTAL 0.5 mg/dL (0.2-1); BLOOD UREA NITROGEN 21.2 mg/dL (7-18); CALCIUM 8.9 mg/dL (8.5-10.1); CREATININE 1.2 mg/dL (0.55-1.3); MAGNESIUM 1.9 mg/dL (1.8-2.4); POTASSIUM 4.2 mmol/L (3.5-5.1); TOT PROT 6.5 g/dl (6.4-8.2)
[2019-07-28] MEDS ORDERED: PATIENT'S OWN MEDICATION (NON-FORMULARY) (Telmisartan [Telmisartan] 80 MG) PO SCH (10:00)
[2019-07-28] MEDS ORDERED: ENOXAPARIN NA (PORCINE) 40 MG/0.4 ML DISP.SYRIN SQ SCH (10:00)
[2019-07-28] MEDS ORDERED: VALSARTAN 160 MG TABLET (UD) PO SCH (11:00)
--- NOTE | 2019-07-28 12:06 | CON.NEURO ---
Consult Consult Specialty:: Bettina Referred by:: PCP - History of Present Illness History of Present Illness: 64-year-old right-handed man with history of high blood pressure high cholesterol presents to the hospital yesterday with a chief complaint of increasing dizziness. Upon questioning the patient patient claims that the dizziness has been with on and off movement. Patient denies any recent trauma to the head no recent travel no palpitation or double vision or blurry vision patient describes the symptoms as intermittent. Patient describes worsening of the symptoms at night. MRI of the brain revealed no evidence for acute pathology. - History Source History Provided By: Patient Limitations to Obtaining History: No Limitations - Alcohol/Substance Use Hx Alcohol Use: No - Smoking History Smoking history: Never smoked Have you smoked in the past 12 months: No Home Medications - Allergies Allergies/Adverse Reactions: Allergies Allergy/AdvReac Type Severity Reaction Status Date / Time No Known Allergies Allergy Verified 07/27/19 09:07 - Home Medications Home Medications: Ambulatory Orders Atorvastatin Ca [Lipitor] 40 mg PO HS 06/23/19 Meclizine HCl [Antivert -] 25 mg PO TID #21 tablet 06/23/19 Meloxicam 7.5 mg PO BID PRN 07/27/19 Telmisartan 80 mg PO DAILY 07/28/19 Family Medical History Family History: Unremarkable Review of Systems - Review of Systems Constitutional: reports: No Symptoms Eyes: reports: No Symptoms HENT: reports: No Symptoms Neck: reports: No Symptoms Physical Exam-Neuro Vital Signs: Vital Signs Temperature 98.3 F 07/28/19 09:10 Pulse Rate 88 07/28/19 09:10 Respiratory Rate 18 07/28/19 09:10 Blood Pressure 143/89 07/28/19 09:10 O2 Sat by Pulse Oximetry (%) 95 07/27/19 21:55 Constitutional: Yes: Well Nourished Neck: Yes: WNL Cardiovascular: Yes: WNL Labs: CBC, BMP 07/28/19 05:35 07/28/19 05:35 - Neuro Exam Level Of Consciousness: Yes: Oriented to Person, Oriented to Place, Oriented to Time Eyes: Yes: PERRLA Speech: WNL Dominant Hand: Right Cranial Nerves II-XII Intact: Yes Gag: Present DTR's: 1+ Left Bicep, 1+ Right Bicep, 1+ Left Tricep, 1+ Right Tricep Response to light touch: Normal Response to pain prick: Normal Response to temperature: Normal Response to vibration: Normal Motor Strength: 3/5: Left Arm, Right Arm, Left Leg, Right Leg Gait: Deferred Imaging - Results X-ray: Image Reviewed MRI: Image Reviewed Problem List - Problems (1) Lightheaded Code(s): R42 - DIZZINESS AND GIDDINESS (2) Vertigo Code(s): R42 - DIZZINESS AND GIDDINESS Assessment/Plan no evidence of acute [employer]IN[employer]DE [employer]ER pathology on neurological examination Neurologically patient can go home 1. Tight blood pressure control. 2. Decrease salt intake. 4. Decrease caffeine intake. 5. Continue meclizine twice daily. 6. Baby aspirin 81 mg once daily. Patient will benefit from vestibular testing and vestibular rehabilitation as an outpatient. Thank you very much for allowing me to be part of this patient's neurological care. Brittnee Dunbar M.D., MSc [facility] [address] [place] [address] [facility] [phone] Office
[2019-07-28 13:56] VITALS: BP 121/63; PULSE 73; TEMP 98.2
[2019-07-28] MEDS ORDERED: ASPIRIN 81 MG CHEWABLE TABLETS PO SCH (14:00)
--- NOTE | 2019-07-28 14:07 | PN ---
Teaching Attending Note Name of Resident: Jean-Paul Gregory ATTENDING PHYSICIAN STATEMENT I saw and evaluated the patient. I reviewed the resident's note and discussed the case with the resident. I agree with the resident's findings and plan as documented. SUBJECTIVE: Reports worsening lightheadedness, intermittent headaches, hearing loss, tinnitus. No CP/palpitations. OBJECTIVE: Afebrile, Hemodynamically Stable. Othostatics negative. Last Vital Signs Temp Pulse Resp BP Pulse Ox 98.2 F 73 16 121/63 96 07/28/19 13:54 07/28/19 13:54 07/28/19 13:54 07/28/19 13:54 07/28/19 09:00 HEENT - Atraumatic, Normocephalic. Heart - S1, S2, RRR Lungs - clear to auscultation Abdomen - Soft, non-tender. Bowel Sounds normal. Extremities - no edema, no calf tenderness. Neuro: LAUREN. EOMI. Tone/Power normal all extremities. Laboratory Results - last 24 hr 07/28/19 07/28/19 05:35 05:35 WBC 7.7 RBC 4.21 Hgb 13.7 Hct 38.8 MCV 92.2 MCH 32.4 MCHC 35.2 RDW 13.9 Plt Count 271 MPV 9.2 Absolute Neuts (auto) 4.3 Neutrophils % 55.8 D Lymphocytes % 32.5 D Monocytes % 7.4 Eosinophils % 3.4 D Basophils % 0.9 Nucleated RBC % 0 Sodium 138 Potassium 4.2 Chloride 107 Carbon Dioxide 25 Anion Gap 6 L BUN 21.2 H Creatinine 1.2 Est GFR (CKD-EPI)AfAm 73.11 Est GFR (CKD-EPI)NonAf 63.08 Random Glucose 98 Calcium 8.9 Phosphorus 3.0 Magnesium 1.9 Total Bilirubin 0.5 AST 19 ALT 24 Alkaline Phosphatase 55 Total Protein 6.5 Albumin 3.6 Triglycerides 74 Cholesterol 184 Total LDL Cholesterol 113 H HDL Cholesterol 54 TSH 0.68 Current Medications Generic Name Dose Route Start Last Admin Trade Name Freq PRN Reason Stop Dose Admin Aspirin 81 mg 07/28/19 14:00 Asa - PO DAILY THELMA Atorvastatin Calcium 40 mg 07/27/19 22:00 07/27/19 22:18 Lipitor - PO 40 mg HS THELMA Administration Enoxaparin Sodium 40 mg 07/28/19 10:00 07/28/19 09:12 Lovenox - SQ 40 mg DAILY THELMA Administration Valsartan 320 mg 07/28/19 11:00 07/28/19 12:04 Diovan - PO 320 mg DAILY THELMA Administration Home Medications Medication Instructions Recorded Atorvastatin Ca [Lipitor] 40 mg PO HS 06/23/19 Telmisartan 80 mg PO DAILY 07/28/19 ASSESSMENT/PLAN: 64 year old male with history of HTN, chronic vertigo/lightheadedness, tinnitus , hearing loss, HLD presents with acute on chronic lightheadedness. 1. Meniere's Disease Follows with ENT Lightheadedness worsens with Meclizine MRI Brain - chronic microvascular ischemic changes, no focal findings. Seen by Neurology - Started on Aspirin 81mg daily. No telemonitoring events. Echo to exclude cardiac cause of lightheadedness 2. HTN - continue ARB 3. HLD - Continue Statin. Medically stable for discharge after Echo.
--- NOTE | 2019-07-28 16:47 | EKG ---
Test Reason : Blood Pressure : / mmHG Vent. Rate : 067 BPM Atrial Rate : 067 BPM P-R Int : 172 ms QRS Dur : 080 ms QT Int : 408 ms P-R-T Axes : 053 051 039 degrees QTc Int : 431 ms NORMAL SINUS RHYTHM NORMAL ECG Confirmed by MD SAIRA, DAKOTA ([id number]) on 07/28/2019 4:47:37 PM Referred By: Confirmed By:DAKOTA CHÁVEZ MD
--- NOTE | 2019-07-28 17:13 | ECHO ---
Name: KENYON CROWDER Exam:Adult Echocardiogram Study Date: 07/28/2019 03:46 PM Age: 64 yrs Reason For Study: lightheadedness/dizziness Height: 67 in Weight: 172 lb BSA: 1.9 m2 MMode/2D Measurements & Calculations IVSd: 1.1 cm Ao root diam: 3.1 cm LVIDd: 4.4 cm LA dimension: 4.0 cm LVIDs: 2.9 cm ACS: 1.8 cm LVPWd: 0.92 cm EDV(Teich): 85.8 ml LVOT diam: 2.0 cm ESV(Teich): 32.8 ml TAPSE: 2.8 cm RV S Hai: 18.7 cm/sec Doppler Measurements & Calculations MV E max hai: 60.7 cm/sec Ao V2 max: 153.4 cm/sec MV A max hai: 99.2 cm/sec Ao max P.4 mmHg MV E/A: 0.61 Ao V2 mean: 98.8 cm/sec MV dec time: 0.20 sec Ao mean P.5 mmHg Ao V2 VTI: 29.6 cm EUSEBIO(I,D): 2.1 cm2 EUSEBIO(V,D): 1.9 cm2 LV V1 max P.1 mmHg SV(LVOT): 60.7 ml LV V1 mean P.6 mmHg LV V1 max: 88.4 cm/sec LV V1 mean: 57.1 cm/sec LV V1 VTI: 18.7 cm TR max hai: 241.6 cm/sec PA V2 max: 98.7 cm/sec TR max P.4 mmHg PA max P.0 mmHg PI end-d hai: 89.6 cm/sec Med Peak E' Hai: 4.6 cm/sec Med E/e': 13.3 Lat Peak E' Hai: 5.6 cm/sec Lat E/e': 10.9 Pulm Sys Hai: 79.5 cm/sec Pulm Bland Hai: 48.9 cm/sec Pulm S/D: 1.6 Procedure A two-dimensional transthoracic echocardiogram with color flow and Doppler was performed. The patient was in normal sinus rhythm during the exam. Left Ventricle The left ventricle is normal in size. There is mild concentric left ventricular hypertrophy. Left lexie tricular systolic function is normal. Ejection Fraction = 60%. The transmitral spectral Doppler flow pattern i s suggestive of impaired LV relaxation. Right Ventricle The right ventricle is normal size. The right ventricular systolic function is normal. Atria The left atrium is mildly dilated. Right atrial size is normal. Mitral Valve The mitral valve is normal. There is mild mitral regurgitation. Tricuspid Valve The tricuspid valve is normal. There is mild tricuspid regurgitation. Right ventricular systolic pres sure is normal. Aortic Valve Fibrocalcific aortic valve without stenosis. The aortic valve is trileaflet. Mild to moderate aortic regurgitation. Pulmonic Valve The pulmonic valve is not well seen, but is grossly normal. Trace pulmonic valvular regurgitation. Great Vessels The aortic root is normal size. Pericardium/Pleura There is no pericardial effusion. Interpretation Summary There is mild concentric left ventricular hypertrophy. Left ventricular systolic function is normal. The transmitral spectral Doppler flow pattern is suggestive of impaired LV relaxation. The right ventricular systolic function is normal. The left atrium is mildly dilated. There is mild mitral regurgitation. There is mild tricuspid regurgitation. Fibrocalcific aortic valve without stenosis. Mild to moderate aortic regurgitation. Trace pulmonic valvular regurgitation. There is no pericardial effusion. MD Pierre Abreu 07/28/2019 05:13 PM
[2019-07-28] MEDS ORDERED: PT OWN MED DRAWER 7, Y5N ONE (17:20)
--- NOTE | 2019-07-28 19:58 | DS ---
Physical Exam: SUBJECTIVE: Patient seen and examined OBJECTIVE: Vital Signs Period Temp Pulse Resp BP Sys/Bland Pulse Ox Last 24 Hr 98.1 F-98.7 F 69-104 16-18 112-150/63-89 95-96 PHYSICAL EXAM GENERAL: The patient is awake, alert, and fully oriented, in no acute distress. HEAD: Normal with no signs of trauma. EYES: PERRL, extraocular movements intact, sclera anicteric, conjunctiva clear. ENT: Ears normal, nares patent, oropharynx clear without exudates, moist mucous membranes. NECK: Trachea midline, full range of motion, supple. LUNGS: Breath sounds equal, clear to auscultation bilaterally, no wheezes, no crackles, no accessory muscle use. HEART: Regular rate and rhythm, S1, S2 without murmur, rub or gallop. ABDOMEN: Soft, nontender, nondistended, normoactive bowel sounds, no guarding, no rebound, no hepatosplenomegaly, no masses. EXTREMITIES: 2+ pulses, warm, well-perfused, no edema. NEUROLOGICAL: Cranial nerves II through XII grossly intact. Normal speech, gait not observed. PSYCH: Normal mood, normal affect. SKIN: Warm, dry, normal turgor, no rashes or lesions noted. LABS Laboratory Results - last 24 hr 07/28/19 07/28/19 05:35 05:35 WBC 7.7 RBC 4.21 Hgb 13.7 Hct 38.8 MCV 92.2 MCH 32.4 MCHC 35.2 RDW 13.9 Plt Count 271 MPV 9.2 Absolute Neuts (auto) 4.3 Neutrophils % 55.8 D Lymphocytes % 32.5 D Monocytes % 7.4 Eosinophils % 3.4 D Basophils % 0.9 Nucleated RBC % 0 Sodium 138 Potassium 4.2 Chloride 107 Carbon Dioxide 25 Anion Gap 6 L BUN 21.2 H Creatinine 1.2 Est GFR (CKD-EPI)AfAm 73.11 Est GFR (CKD-EPI)NonAf 63.08 Random Glucose 98 Calcium 8.9 Phosphorus 3.0 Magnesium 1.9 Total Bilirubin 0.5 AST 19 ALT 24 Alkaline Phosphatase 55 Total Protein 6.5 Albumin 3.6 Triglycerides 74 Cholesterol 184 Total LDL Cholesterol 113 H HDL Cholesterol 54 TSH 0.68 HOSPITAL COURSE: Date of Admission:07/27/19 Date of Discharge: 07/28/19 Discharge Summary Problems reviewed: Yes Reason For Visit: LIGHTHEADEDNESS Condition: Good - Instructions Diet, Activity, Other Instructions: You were seen in the hospital for complaints of persistent vertigo, tinnitus and vision changes. You had a head CT and brain MRI both of which did not show any acute condition that needed emergent intervention. You were evaluated by the neurologist who recommended you to undergo vestibular testing and to start vestibular rehabilitation as an outpatient to help with your symptoms. An echocardiogram (an ultrasound of the heart) was done that showed normal heart function. You were monitored in the hospital and are now stable for discharge. Medications We have made the following changes to your medication regimen: Please STOP taking Meclizine. Please START taking Aspirin 81 mg once a day by mouth. You may continue taking the rest of your home medications as directed. Recommendation It is HIGHLY advised to: -Decrease your salt intake. -Decrease your caffeine intake. -Take your blood pressure medications regularly. Follow Up Please follow up with your primary care physician, Dr. Jade, within 1 week. Please follow up with your neurologist, Dr. Dunbar, within 1 week. Please follow up with your ENT doctor, Dr. Marin. Per our neurologist recommendation, you may need vestibular rehabilitation as an outpatient. This treatment should be follows up by your ENT doctor. Please follow up with Cardiology, Dr. Abreu for further evaluation of the moderate Aortic Stenosis found on Echocardiogram. If you experience worsening headaches, visions changes, facial droop, chest pain , shortness of breath, or worsening neurological symptoms, please proceed to your nearest emergency room immediately. Referrals: Anabela CORTÉS [Other] - 1 Week Davidson Jade MD [Primary Care Provider] - 1 Week Pierre Abreu MD [Staff Physician] - 1 Week (moderate AR) Brittnee Dunbar MD [Staff Physician] - 1 Week Disposition: HOME - Home Medications Comprehensive Discharge Medication List: Ambulatory Orders Atorvastatin Ca [Lipitor] 40 mg PO HS 06/23/19 Aspirin [ASA -] 81 mg PO DAILY #30 tab.chew 07/28/19 Telmisartan 80 mg PO DAILY 07/28/19 ATTENDING PHYSICIAN STATEMENT I saw and evaluated the patient. I reviewed the resident's note and discussed the case with the resident. I agree with the resident's findings and plan as documented. SUBJECTIVE: OBJECTIVE: ASSESSMENT AND PLAN:
== END 2019-07-28 18:12 | disposition home or self-care (01) | DRG 149 ==
LOC: JER 09:03 → JERBED 10:18 → J4S 21:52
DX: H81.09 Meniere's disease, unspecified ear (principal); M51.26 Other intervertebral disc displacement, lumbar region; I10 Essential (primary) hypertension; E78.5 Hyperlipidemia, unspecified; J32.9 Chronic sinusitis, unspecified
CPT/HCPCS: 36415; 70450-TC; 70551-TC; 71045-TC-FY; 80053; 80061; 82550; 82553; 83721; 83735; 84100; 84443; 84484; 85025; 93005; 93010; 93306-TC; 99285-25